=== PATIENT | female | born 1980 | race Caucasian/White ===

== ENCOUNTER 2016-07-14 21:36 | Emergency (ER) | payer OTHER ==
[2016-07-14 21:56] VITALS: BP 130/92; PULSE 81; TEMP 98.1; BMI 20.5
[2016-07-14] MEDS ORDERED: PHENAZOPYRIDINE HCL 100 MG TABLET (FP) PO ONE (22:15)
--- NOTE | 2016-07-14 22:25 | PDOC ---
History of Present Illness - General Chief Complaint: Urinary Problem Stated Complaint: PAIN Time Seen by Provider: 07/14/16 21:57 - History of Present Illness Initial Comments: 07/14/16 22:22 CHIEF COMPLAINT: urinary problems HISTORY OF PRESENT ILLNESS: 35 yo F with no PMH presents to [facility] with urinary symptoms since today. Patient reports urinary frequency, urgency, and "blood spots" in urine. Patient denies any fever, nausea, vomiting, or diarrhea , or rectal bleeding. Patient's last LMP began 4 days ago. PAST MEDICAL HISTORY: Denies past medical history FAMILY HISTORY: Denies SOCIAL HISTORY: Denies tobacco, alcohol, illicit drug use. SURGICAL HISTORY: Denies ALLERGIES: No known drug allergies REVIEW OF SYSTEMS General/Constitutional: Denies fever or chills. Gastrointestinal: Denies nausea, vomiting, diarrhea or constipation. Denies rectal bleeding. Genitourinary: Dysuria, urinary frequency and urgency. PHYSICAL EXAM General Appearance: Well-appearing, appropriately dressed. No apparent distress HEENT: EOMI, PERRLA. No conjunctival pallor. No photophobia, scleral icterus. Respiratory/Chest: Lungs CTAB. Cardiovascular: RRR. S1, S2. Musculoskeletal/Extremities: Normal inspection. FROM of all extremities, normal capillary refill. No CVA tenderness. Integumentary: Appropriate color, dry, warm. No cyanosis, erythema, jaundice or rash Neurologic: Fully oriented, alert. Appropriate mood/affect. Motor strength 5/ 5. No appreciable EOM palsy, facial droop or sensory deficit. Past History - Past Medical History Allergies/Adverse Reactions: Allergies Allergy/AdvReac Type Severity Reaction Status Date / Time No Known Allergies Allergy Unverified 07/14/16 21:48 Home Medications: Ambulatory Orders Vit/Iron Fumarate/FA [ Tablet] 1 each PO DAILY 05/06/14 Acetaminophen [Tylenol .Regular Strength -] 650 mg PO Q3H PRN #20 tablet Ibuprofen [Motrin -] 200 mg PO Q4H PRN #20 tablet 05/07/14 Cephalexin [Keflex] 500 mg PO BID #20 capsule 07/14/16 Asthma: No Cancer: No Cardiac Disorders: No Diabetes: No HTN: No Seizures: No Thyroid Disease: No - Immunization History Immunization Up to Date: Yes - Psycho/Social/Smoking Cessation Hx Suicidal Ideation: No Smoking History: Never smoked Have you smoked in the past 12 months: No Hx Alcohol Use: No Drug/Substance Use Hx: No Hx Substance Use Treatment: No *Physical Exam - Vital Signs Last Vital Signs Temp Pulse Resp BP Pulse Ox 98.1 F 81 20 130/92 99 07/14/16 21:49 07/14/16 21:49 07/14/16 21:49 07/14/16 21:49 07/14/16 21:49 Medical Decision Making - Medical Decision Making 07/14/16 22:24 35 yo F with no PMH presents to fast track with urinary frequency, urgency, and hematuria. -UA, Ucx Will treat for UTI. Keflex 500 mg po bid, script sent to pharm. Advised patient to complete entire course of antibiotics and of signs and symptoms for return to ER. Patient verbalized understanding and agrees to plan. *DC/Admit/Observation/Transfer Diagnosis at time of Disposition: UTI (urinary tract infection) Qualifiers: Urinary tract infection type: site unspecified Hematuria presence: with hematuria Qualified Code(s): N39.0 - Urinary tract infection, site not specified - Discharge Dispostion Admit: No - Prescriptions Prescriptions: Cephalexin [Keflex] 500 mg PO BID #20 capsule - Referrals Referrals: Rhona David [Primary Care Provider] - - Patient Instructions Printed Discharge Instructions: DI for Urinary Tract Infection (UTI) Additional Instructions: Please take medications as prescribed and complete the entire course of antibiotics. If you experience any fever, nausea, chills, vomiting, diarrhea, or any new or worsening symptoms, please return to the ER.
[2016-07-14 22:26] LABS: URINE APPEARANCE SL CLOUDY; URINE BILIRUBIN NEGATIVE (NEGATIVE); URINE COLOR LT. RED; URINE GLUCOSE (UA) NEGATIVE (NEGATIVE); URINE KETONE TRACE (NEGATIVE); URINE NITRITE NEGATIVE (NEGATIVE); URINE UROBILINOGEN 0.2 E.U/dl E.U./dl (0.2-1.0)
[2016-07-14] MEDS ORDERED: PHENAZOPYRIDINE HCL 100 MG TABLET (FP) ONE (22:26)
[2016-07-14 22:29] LABS: URINE BLOOD 3+ (NEGATIVE); URINE LEUK ESTERASE 1+ (NEGATIVE); URINE PROTEIN 2+ (NEGATIVE)
[2016-07-14 22:34] LABS: URINE BACTERIA FEW /hpf (NONE SEEN); YEAST FEW
[2016-07-14 22:39] LABS: URINE RBC 1859 /hpf (0-3); URINE WBC 153 /hpf (3-5)
== END 2016-07-14 22:47 | disposition home or self-care (01) ==
LOC: JERFT 21:36
DX: N39.0 Urinary tract infection, site not specified (principal)
CPT/HCPCS: 81003; 81015; 87086; 99281-25

== ENCOUNTER 2016-12-13 12:06 | Emergency (ER) | payer OTHER ==
[2016-12-13 12:10] VITALS: BP 127/85; PULSE 75; TEMP 97.8; BMI 21.8
[2016-12-13 12:56] LABS: BASOPHIL 0.5 % (0-2.0); EOSINOPHIL 7.2 % (0-4.5); MCH 27.3 pg (25.7-33.7); MCHC 32.4 g/dl (32.0-36.0); MEAN CELL VOLUME 84.2 fl (80-96); MEAN PLT VOLUME 7.7 fl (7.5-11.1); NEUTROPHILS 48.2 % (42.8-82.8); PLATELET COUNT 398 K/MM3 (134-434); RDW 13.9 % (11.6-15.6); WHITE BLOOD COUNT 5.8 K/mm3 (4.0-10.0)
[2016-12-13 13:04] LABS: URINE APPEARANCE CLEAR; URINE BILIRUBIN NEGATIVE (NEGATIVE); URINE BLOOD 3+ (NEGATIVE); URINE COLOR STRAW; URINE GLUCOSE (UA) NEGATIVE (NEGATIVE); URINE KETONE NEGATIVE (NEGATIVE); URINE LEUK ESTERASE NEGATIVE (NEGATIVE); URINE NITRITE NEGATIVE (NEGATIVE); URINE PROTEIN NEGATIVE (NEGATIVE); URINE UROBILINOGEN NEGATIVE mg/dL (0.2-1.0)
[2016-12-13 13:17] LABS: ALBUMIN 3.6 g/dl (3.4-5.0); ANION GAP 5 (8-16); BILIRUBIN,TOTAL 0.6 mg/dL (0.2-1.0); CALCIUM 8.9 mg/dL (8.5-10.1); CO2 30 mmol/L (21-32); CREATININE 0.6 mg/dL (0.55-1.02); GLUCOSE,RANDOM 87 mg/dL (74-106); SGOT/AST 21 U/L (15-37); SGPT/ALT 29 U/L (12-78); TOT PROT 7.5 g/dl (6.4-8.2)
[2016-12-13 13:19] LABS: URINE RBC 3 /hpf (0-3); URINE WBC 1 /hpf (3-5)
[2016-12-13 13:20] LABS: ALK PHOS 90 U/L (45-117)
--- NOTE | 2016-12-13 13:54 | PDOC ---
History of Present Illness - General Chief Complaint: Vaginal Bleeding Stated Complaint: VAGINAL BLEEDING, 3 WKS Time Seen by Provider: 12/13/16 12:12 History Source: Patient Exam Limitations: No Limitations - History of Present Illness Travel History: No Initial Comments: 12/13/16 13:37 36-year-old female presents to the ED with complaints of vaginal bleeding for the past 2-3 days and states while she was visiting in [facility] last week she had went to the ER secondary nausea and vomiting and was told initially that she was not at but had a virus and then when the blood was collected she was told that she was . Patient denies abdominal pain, and nausea presently, weakness, dizziness, low back pain, or worsening vaginal bleeding. Patient states normally her cycle comes at the first of the month but states the past 2 days she began bleeding which is irregular for her. Timing/Duration: reports: constant Quality: reports: mild (bleeding) Past History - Past Medical History Allergies/Adverse Reactions: Allergies Allergy/AdvReac Type Severity Reaction Status Date / Time No Known Allergies Allergy Unverified 12/13/16 12:07 Home Medications: Ambulatory Orders NK [No Known Home Medication] 12/13/16 Asthma: No Cancer: No Cardiac Disorders: No Diabetes: No HTN: No Seizures: No Thyroid Disease: No Other medical history: none - Immunization History Immunization Up to Date: Yes - Psycho/Social/Smoking Cessation Hx Anxiety: No Suicidal Ideation: No Smoking History: Never smoked Have you smoked in the past 12 months: No Information on smoking cessation initiated: No Hx Alcohol Use: No Drug/Substance Use Hx: No Substance Use Type: None Hx Substance Use Treatment: No Patient Lives Alone: No Lives with/in: spouse/SO Review of Systems - Review of Systems Able to Perform ROS?: No Constitutional: No: Symptoms Reported HEENTM: No: Symptoms Reported Respiratory: No: Symptoms reported Cardiac (ROS): No: Symptoms Reported ABD/GI: No: Symptoms Reported : Yes: Discharge Musculoskeletal: No: Symptoms Reported Integumentary: No: Symptoms Reported Neurological: No: Symptoms reported Endocrine: No: Symptoms Reported Hematologic/Lymphatic: No: Symptoms Reported *Physical Exam - Vital Signs Last Vital Signs Temp Pulse Resp BP Pulse Ox 97.8 F 75 18 127/85 100 12/13/16 12:07 12/13/16 12:07 12/13/16 12:07 12/13/16 12:07 12/13/16 12:07 - Physical Exam General Appearance: Yes: Nourished, Appropriately Dressed. No: Apparent Distress HEENT: negative: Pale Conjunctivae Neck: positive: Normal Thyroid, Supple Respiratory/Chest: positive: Lungs Clear, Normal Breath Sounds. negative: Respiratory Distress, Accessory Muscle Use Cardiovascular: positive: Regular Rhythm, Regular Rate. negative: Murmur Female Pelvic Exam: positive: cervical os closed, vaginal bleeding (bright red no clots (minimal)) Gastrointestinal/Abdominal: positive: Normal Bowel Sounds, Soft. negative: Distended, Tenderness Musculoskeletal: negative: CVA Tenderness Extremity: positive: Normal Capillary Refill Integumentary: positive: Normal Color, Warm, Moist Neurologic: positive: Normal Mood/Affect (appropiate for age), Motor Strength 5/ 5 (ambulatory) ED Treatment Course - LABORATORY CBC & Chemistry Diagram: 12/13/16 12:45 12/13/16 12:42 - ADDITIONAL ORDERS Additional order review: Laboratory Results 12/13/16 12/13/16 12:45 12:42 Sodium 138 Potassium 4.2 D Chloride 103 Carbon Dioxide 30 D Anion Gap 5 L BUN 12 Creatinine 0.6 Creat Clearance w eGFR > 60 Random Glucose 87 D Calcium 8.9 Total Bilirubin 0.6 AST 21 ALT 29 Alkaline Phosphatase 90 Total Protein 7.5 Albumin 3.6 Beta HCG, Quant < 1.0 Urine Color Straw Urine Appearance Clear Urine pH 7.0 Urine Protein Negative Urine Glucose (UA) Negative Urine Ketones Negative Urine Blood 3+ H Urine Nitrite Negative Urine Bilirubin Negative Urine Urobilinogen Negative Ur Leukocyte Esterase Negative Urine RBC 3 Urine WBC 1 12/13/16 12:45 RBC 4.86 MCV 84.2 MCHC 32.4 RDW 13.9 MPV 7.7 D Neutrophils % 48.2 D Lymphocytes % 37.5 D Monocytes % 6.6 Eosinophils % 7.2 H D Basophils % 0.5 Medical Decision Making - Medical Decision Making 12/13/16 13:08 Patient here for evaluation of bleeding for the past 2-3 days without abdominal pain nausea, or weakness. Patient states while on vacation was toldshe was not but then had blood work done that showed she was . Patient states no other complaints. Patient ordered for beta hCG, CBC, comp and urine. 12/13/16 14:01 Laboratory Tests 12/13/16 12/13/16 12/13/16 12:42 12:45 12:45 WBC 5.8 D Hgb 13.3 D Hct 40.9 Plt Count 398 D Neutrophils % 48.2 D Sodium 138 Potassium 4.2 D Chloride 103 Carbon Dioxide 30 D Anion Gap 5 L BUN 12 Creatinine 0.6 Random Glucose 87 D Calcium 8.9 AST 21 ALT 29 Beta HCG, Quant < 1.0 Urine Blood 3+ H Ur Leukocyte Esterase Negative Urine RBC 3 Urine WBC 1 patient continues to deny abdominal pain and stating if she is not that she wants to go home. Patient will be given her labs and told to follow-up with her PRODUCT DEVELOPMENT MANAGER at [facility]. *DC/Admit/Observation/Transfer Diagnosis at time of Disposition: Vaginal bleeding - Discharge Dispostion Disposition: HOME Condition at time of disposition: Good - Patient Instructions Printed Discharge Instructions: DI for Vaginal Bleeding Additional Instructions: At this point I do recommend you follow up with your PRODUCT DEVELOPMENT MANAGER at [facility] and take copy of lab work with you. But if you experience abdominal pain or severe abdominal bleeding may return to the emergency room at any given time.
== END 2016-12-13 14:11 | disposition home or self-care (01) ==
LOC: JER 12:06
DX: N93.8 Other specified abnormal uterine and vaginal bleeding (principal)
CPT/HCPCS: 36415; 80053; 81003; 81015; 84702; 85025; 99283-25

== ENCOUNTER 2018-05-01 20:28 | Emergency (ER) | payer OTHER ==
--- NOTE | 2018-05-01 20:44 | PDOC ---
Rapid Medical Evaluation Medical Evaluation: Allergies Allergy/AdvReac Type Severity Reaction Status Date / Time No Known Allergies Allergy Unverified 12/13/16 12:07 I have performed a brief in-person evaluation of this patient. The patient presents with a chief complaint of: Is currently 22 weeks ; C/O SOB for past few days; denies CP, abd pain, n/v, vaginal bleeding Pertinent physical exam findings: In NAD, vitals stable I have ordered the following: Stable, will call RECREATION THERAPY AIDES TEACHER for heart monitoring The patient will proceed to the ED for further evaluation. 05/01/18 20:38 Discharge Disposition - Referrals Referrals: Agnes Pina MD [Primary Care Provider] - - Patient Instructions - Post Discharge Activity
[2018-05-01 20:47] VITALS: BP 122/85; PULSE 87; TEMP 98; BMI 24.0
--- NOTE | 2018-05-01 21:11 | PDOC ---
History of Present Illness - General Chief Complaint: Shortness of Breath Stated Complaint: Shortness of Breath Time Seen by Provider: 05/01/18 21:07 History Source: Patient Exam Limitations: No Limitations Past History - Past Medical History Allergies/Adverse Reactions: Allergies Allergy/AdvReac Type Severity Reaction Status Date / Time No Known Allergies Allergy Unverified 05/01/18 20:38 Home Medications: Ambulatory Orders NK [No Known Home Medication] 12/13/16 Asthma: No Cancer: No Cardiac Disorders: No COPD: No Diabetes: No HTN: No Seizures: No Thyroid Disease: No - Immunization History Immunization Up to Date: Yes - Suicide/Smoking/Psychosocial Hx Smoking History: Never smoked Have you smoked in the past 12 months: No Hx Alcohol Use: No Drug/Substance Use Hx: No Substance Use Type: None Hx Substance Use Treatment: No *Physical Exam - Vital Signs Last Vital Signs Temp Pulse Resp BP Pulse Ox 98.0 F 87 22 H 122/85 05/01/18 20:38 05/01/18 20:38 05/01/18 20:38 05/01/18 20:38 - Physical Exam General Appearance: No: Apparent Distress Respiratory/Chest: positive: Lungs Clear, Normal Breath Sounds. negative: Respiratory Distress Cardiovascular: positive: Regular Rhythm, Regular Rate, S1, S2. negative: Murmur Gastrointestinal/Abdominal: positive: Soft, Other (Gravid uterus). negative: Tender Integumentary: positive: Normal Color Neurologic: positive: Alert, Normal Mood/Affect Moderate Sedation - Procedure Monitoring Vital Signs: Procedure Monitoring Vital Signs Temperature 98.0 F 05/01/18 20:38 Pulse Rate 87 05/01/18 20:38 Respiratory Rate 22 H 05/01/18 20:38 Blood Pressure 122/85 05/01/18 20:38 O2 Sat by Pulse Oximetry (%) Medical Decision Making - Medical Decision Making 37 y/o F currently 22 weeks , presents with SOB from last week. Denies fever, URI sxs, chest pain, palpitations, dizziness, abd pain, n/v, vaginal bleeding, urinary complaints Vitals stable; unlikely PE Lungs clear PLANT PROTECTION SUPERVISOR came down to do bedside ultrasound and vaginal exam; everything was normal per their exam SOB likely related to her Stable for d/c 05/01/18 21:08 *DC/Admit/Observation/Transfer Diagnosis at time of Disposition: Shortness of breath during - Discharge Dispostion Disposition: HOME Condition at time of disposition: Stable Decision to Admit order: No - Referrals Referrals: Agnes Pina MD [Primary Care Provider] - 3 days - Patient Instructions Printed Discharge Instructions: DI for Shortness of Breath Additional Instructions: Thank you for choosing [facility]. It was a pleasure taking care of you. Likely your shortness of breath is related to your Follow-up with your PLANT PROTECTION SUPERVISOR as scheduled Return to the Emergency Department if your symptoms worsen or persist, you have fever, shortness of breath, chest pain, severe abdominal pain, vomiting, vaginal bleeding or other concerning symptoms. - Post Discharge Activity
== END 2018-05-01 21:15 | disposition home or self-care (01) ==
LOC: JERFT 20:28
PROC: BY4CZZZ Ultrasonography of Second Trimester, Single Fetus (ICD-10-PCS; principal; 2018-05-01)
DX: O26.892 Other specified pregnancy related conditions, second trimester (principal); O99.512 Diseases of the respiratory system complicating pregnancy, second trimester; R06.02 Shortness of breath; Z3A.22 22 weeks gestation of pregnancy
CPT/HCPCS: 76801-TC; 99281-25

== ENCOUNTER 2018-09-11 23:50 | Inpatient (IN) | payer OTHER | END 2018-09-14 12:50 | disposition home or self-care (01) | LOC: JLDR 23:50 → J3W 09-12 03:15 ==

== ENCOUNTER 2018-11-05 04:48 | Day surgery (SDC) | payer OTHER ==
[2018-10-31 09:44] VITALS: BMI 23.2
[2018-11-05] MEDS ORDERED: DESFLURANE GAS 240 ML BOTTLE IH ONE (07:18)
[2018-11-05] MEDS ORDERED: DEXMEDETOMIDINE HCL 200 MCG/2 ML IVPB ONE (07:18)
[2018-11-05] MEDS ORDERED: PROPOFOL 20 ML ONE ×3 (07:35→08:34)
[2018-11-05] MEDS ORDERED: LIDOCAINE HCL/PF 2% SDV 5ML VIAL ONE (07:36)
[2018-11-05] MEDS ORDERED: SUCCINYLCHOLINE CHLORIDE 200 MG/10 ML SYRINGE ONE (07:36)
[2018-11-05] MEDS ORDERED: MIDAZOLAM HCL 2 MG/2 ML SINGLE DOSE VIAL ONE (07:36)
[2018-11-05] MEDS ORDERED: DEXAMETHASONE SOD PHOSPHATE 4 MG/1 ML VIAL ONE (07:36)
[2018-11-05] MEDS ORDERED: KETOROLAC TROMETHAMINE 30 MG/1 ML VIAL ONE (07:37)
[2018-11-05] MEDS ORDERED: BUPIVACAINE HCL/PF 0.25% (2.5MG/ML) 10 ML VIAL ONE (07:37)
[2018-11-05] MEDS ORDERED: SODIUM CHLORIDE 0.9% P/F 10 ML VIAL IJ ONE (07:40)
--- NOTE | 2018-11-05 08:14 | HP ---
Admitting History and Physical - Admission Chief Complaint: Sterilization History of Present Illness: 38yo here for sterilization. 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: Alzheimer's, CVA, Dementia, Migraine, Multiple Sclerosis, Peripheral Neuropathy, Parkinson's, Seizure, Syncope, TIA, Vertigo, Other Cardiovascular: No: AFIB, Aneurysm, Aortic Insufficiency, Aortic Stenosis, CAD, CHF, Deep Vein Thrombosis, HTN, Hyperlipdemia, CO, Mitral Insufficiency, Mitral Stenosis, Murmur, Pulmonary Hypertension, Other Pulmonary: No: Asthma, Bronchitis, Cancer, COPD, O2 Dependent, Pneumonia, Previously Intubated, Pulmonary Embolus, Pulmonary Fibrosis, Sleep Apnea, Other Gastrointestinal: No: Ascites, Cancer, Constipation, Crohn's Disease, Diverticulitis, Diverticulosis, Esophageal Varices, Gastritis, GERD, GI Bleed, Hemorrhoids, Hiatal Hernia, Inflamatory Bowel Disease, Irritable Bowel Disease, Pancreatitis, Peptic Ulcer Disease, Ulcerative Colitis, Other Hepatobiliary: No: Cirrhosis, Cholelithiasis, Cholecystitis, Choledocholithiasis , Hepatitis A, Hepatitis B, Hepatitis C, Other Renal/: No: Renal Failure, Renal Inusuff, BPH, Cancer, Hematuria, Hemodialysis , Neurogenic Bladder, Renal Calculi, UTI, Other Reproductive: No: Ectopic , Endometriosis, Fibroids, PID, Polycystic Ovary Syndrome, Postmenopausal, Other ...LMP: 11/29/17 ...LMP Comment: post 09/12/18 ...: No ...: 5 ...Para: 5 Infectious Disease: No: AIDS, C-Diff, Herpes Zoster, HIV, MRSA, STD's, Tuberculosis, VREF, Other Psych: No: Addictions, Anxiety, Bipolar, Depression, Panic, Psychosis, Schizophrenia, Other Musculoskeletal: No: Bursitis, Chronic low back pain, Hemiparesis, Hemiplegia, Osteoarthritis, Paraplegia, Other Rheumatology: No: Fibromyalgia, Gout, Lupus, Rheumatoid Arthritis, Sarcoidosis, Vasculitis, Other - Past Surgical History Past Surgical History: Yes: None - Smoking History Smoking history: Never smoked Have you smoked in the past 12 months: No - Alcohol/Substance Use Hx Alcohol Use: No History of Substance Use: reports: None - Social History Usual Living Arrangement: Yes: With Spouse ADL: Independent History of Recent Travel: No Home Medications - Allergies Allergies/Adverse Reactions: Allergies Allergy/AdvReac Type Severity Reaction Status Date / Time No Known Allergies Allergy Unverified 11/05/18 06:50 - Home Medications Home Medications: Ambulatory Orders Pnv No.95/Ferrous Fum/Folic AC [ Caplet] 1 each PO DAILY 11/05/18 Review of Systems - Review of Systems Constitutional: denies: No Symptoms, Chills, Diaphoresis, Fever, Lethargy, Loss of Appetite, Malaise, Night Sweats, Unintentional Wgt. Loss, Weakness, Other Cardiovascular: denies: No Symptoms, Chest Pain, Edema, Palpitations, Shortness of Breath, Other Respiratory: denies: No Symptoms, Cough, Exercise Intolerance, Hemoptysis, Orthopnea, PND, Snoring, SOB, SOB on Exertion, Wheezing, Other Gastrointestinal: denies: No Symptoms, Abdominal Pain, Bloating, Constipation, Diarrhea, Dysphagia, Indigestion, Melena, Nausea, Rectal Bleeding, Vomiting, Vomiting Blood, Other Physical Examination Vital Signs: Vital Signs Temperature 97.8 F 11/05/18 06:47 Pulse Rate 71 11/05/18 06:47 Respiratory Rate 20 11/05/18 06:47 Blood Pressure 99/75 11/05/18 06:47 O2 Sat by Pulse Oximetry (%) 97 11/05/18 06:47 Constitutional: Yes: Well Nourished, No Distress, Calm Eyes: Yes: WNL, Conjunctiva Clear, EOM Intact HENT: Yes: WNL, Atraumatic, Normocephalic Neck: Yes: WNL, Supple, Trachea Midline Cardiovascular: Yes: WNL, Regular Rate and Rhythm Respiratory: Yes: WNL, Regular, CTA Bilaterally Gastrointestinal: Yes: WNL, Normal Bowel Sounds Musculoskeletal: Yes: WNL Extremities: Yes: WNL Edema: No Integumentary: Yes: WNL Neurological: Yes: WNL, Alert, Oriented ...Motor Strength: WNL Psychiatric: Yes: WNL Assessment/Plan 38yo for LSC b/l salpignectomy Adamant she wants no more children, declined other LARCs NPO, IVFs SCDs Cruz Risk of procedure reiterated to patient including bleeding, infection, injury to organs/vessels/nerves, permanency and risk of regret. Future childbearing would require ART. All questions answered Consent signed. Vita Ahumada MD
[2018-11-05] MEDS ORDERED: BUPIVACAINE HCL/PF 0.25% (2.5MG/ML) 10 ML VIAL IJ ONE ×2 (08:35)
[2018-11-05] MEDS ORDERED: NEOSTIGMINE METHYLSULFATE 0.5 MG/ML - 10 ML MDV ONE (08:49)
[2018-11-05] MEDS ORDERED: GLYCOPYRROLATE 0.2 MG/1 ML VIAL ONE (08:49)
--- NOTE | 2018-11-05 09:02 | OP ---
Operative Note - Note: Operative Date: 11/05/18 Pre-Operative Diagnosis: Desires Permanent Sterilization Operation: Laparoscopic Bilateral Salpingectomy Findings: Normal uterus, normal Fallopian tubes, normal ovaries Post-Operative Diagnosis: Same as Pre-op Surgeon: Radha Ahumada Housekeeper Nanny: Delbert Soriano Anesthesia: General Specimens Removed: Bilateral Fallopian Tubes Estimated Blood Loss (mls): 20 Drains, Volume Out (mls): 500 (clear urine) Operative Report Dictated: Yes
--- NOTE | 2018-11-05 09:07 | SURG ---
Surgery Bot[facility] Laboratory Assistant Note [facility] Laboratory Assistant: Delbert Soriano PA-C Date of Service: 11/05/18 Diagnosis: Elective Permanent Sterilization Procedure: Laparoscopic Bilateral Salpingectomy I was present for the entirety of the operative procedure. For further detail, please refer to operative report. Visit type - Case Type Case Type: Scheduled - Emergency Emergency Visit: No - New patient This patient is new to me today: Yes Date on this admission: 11/05/18 - Critical Care Critical Care patient: No
[2018-11-05] MEDS ORDERED: ONDANSETRON 4 MG/2 ML VIAL IVPUSH PRN (09:44)
[2018-11-05] MEDS ORDERED: oxyCODONE HCL 5 MG TABLET PO PRN (09:44)
[2018-11-05] MEDS ORDERED: LACTATED RINGERS SOLUTION 1,000 ML IV SCH (09:45)
[2018-11-05 10:46] VITALS: TEMP 97.8
[2018-11-05 12:25] VITALS: BP 102/60; PULSE 50
--- NOTE | 2018-11-05 14:28 | OP ---
DATE OF OPERATION: 11/05/2018 PREOPERATIVE DIAGNOSIS: Desires permanent sterilization. POSTOPERATIVE DIAGNOSIS: Desires permanent sterilization. PROCEDURE: Laparoscopic bilateral salpingectomy. SURGEON: Radha Ahumada MD SOLID WASTE ENGINEER: BLELO Kemp ANESTHESIA: General. IV FLUIDS: 700 mL. ESTIMATED BLOOD LOSS: 20 mL. URINE OUTPUT: 500 mL of clear urine at the end of the procedure. FINDINGS: Normal uterus, normal fallopian tubes, normal ovaries. COMPLICATIONS: None. CONDITION: Stable to recovery room. NATURE OF THE PROCEDURE: After the appropriate consents were signed, patient was taken to the operating room. General anesthesia was administered. She was placed in dorsal lithotomy position. The abdomen was prepped and draped in normal sterile fashion. Timeout was performed, confirming correct patient and procedure. A sterile Cruz catheter was inserted into the urethra into the bladder. Then 2 mL of 0.25% Marcaine was injected into the umbilicus. Using a 15 blade scalpel, a 5-mm incision was made to accommodate the 5-mm laparoscope, which was introduced under direct visualization. Entry into the abdomen was confirmed. The abdomen was insufflated with gas. The patient was placed in Trendelenburg position. Using 2 mL of the 0.25% Marcaine, a small left lower quadrant port. Injection site was made using the blade. Another 5-mm incision was made to accommodate a left lower quadrant port, which was inserted under direct visualization. Attention was then paid to the right lower quadrant, and a 5-mm laparoscopic port inserted as well. The bowel was swept from the abdomen. The uterus was noted to be normal, the fallopian tubes also appeared normal, and the ovaries appeared normal without any cysts. Using the LigaSure device, the fallopian tube was ligated along the mesosalpinx all the way to its insertion to the uterus. The bite sites were noted to be hemostatic. The patient's left fallopian tube was then removed through the right lower quadrant port. Attention was then paid to the patient's right fallopian tube, which was grasped with the grasper, carried through to the fimbriated edges, which were noted to be normal. Using the LigaSure device, the fallopian tube was then ligated along the mesosalpinx all the way to its insertion point at the uterus. The bite sites were also noted to be hemostatic. The patient's right fallopian tube was removed through the right lower quadrant port. Attention was then paid back to the patient's left side, which was noted to be hemostatic. Attention was then paid back to the right side, which was noted to be hemostatic. The abdomen was deflated of gas. Hemostasis was still noted. The patient's right and left lower quadrant ports were then removed under direct visualization. The umbilical port was also removed. The incision sites were all closed with a 4-0 Biosyn. Appropriate bandages were placed. The Cruz catheter was removed. The patient was taken from the operating room to the recovery area in stable condition. MD MAN VELEZ/[id number]
--- NOTE | 2018-11-07 17:16 | PATH ---
Surgical Pathology Report Patient Name: GENI ELLIOTT [facility]. Rec. #: [id number] /Age/Gender: 1980 (Age: 38) / F Account: [id number] Location: [facility] SURGICAL Taken: 11/05/2018 Received: 11/05/2018 Reported: 11/07/2018 Physicians: Radha Ahumada Specimen(s) Received A: RIGHT FALLOPIAN TUBE B: LEFT FALLOPIAN TUBE Clinical History 38 year old , desires permanent sterilization Final Diagnosis A. FALLOPIAN TUBE, RIGHT, LAPAROSCOPIC SALPINGECTOMY: UNREMARKABLE FALLOPIAN TUBE (INCLUDING FIMBRIATED END AND FULL LUMINAL PORTION). B. FALLOPIAN TUBE, LEFT, LAPAROSCOPIC SALPINGECTOMY: FALLOPIAN TUBE WITH PARATUBAL CYST AND ENDOSALPINGOSIS (INCLUDING FIMBRIATED END AND FULL LUMINAL PORTION). Electronically Signed Jessica Thacker M.D. Gross Description A. Received in formalin labeled "right fallopian tube," is a 4.3 cm in length fimbriated fallopian tube. The outer surface is larkin lopez and smooth. Sectioning reveals an unremarkable lumen. Rn Admit sections are submitted in 2 cassettes as follows: 1-fimbria; 2-cross sections of fallopian tube. B. Received in formalin labeled "left fallopian tube," is a 4 cm in length fimbriated fallopian tube. The outer surface is larkin-singh and smooth. Sectioning reveals an unremarkable lumen. Rn Admit sections are submitted in 2 cassettes as follows: 1-fimbria; 2-cross sections of fallopian tube. /11/06/2018 saudi11/06/2018
== END 2018-11-05 12:10 | disposition home or self-care (01) ==
LOC: JASU-SURG 04:48
PROVIDERS: ATTEND Obstetrics & Gynecology
PROC: 0U574ZZ Destruction of Bilateral Fallopian Tubes, Percutaneous Endoscopic Approach (ICD-10-PCS; principal; 2018-11-05 08:00)
DX: Z30.2 Encounter for sterilization (principal)
CPT/HCPCS: 84703; 88302-TC; 94760

== ENCOUNTER 2022-03-17 23:46 | Emergency (ER) | payer SELFPAY ==
[2022-03-17 23:57] VITALS: BP 145/99; PULSE 75; RESP 20; TEMP 98.2; BMI 24.4
== END 2022-03-18 03:13 | disposition left against medical advice (07) ==
LOC: JER 23:46
DX: R06.09 Other forms of dyspnea (principal); R05.9 Cough, unspecified
CPT/HCPCS: 0241U-QW; 71046-TC-FY; 99285-25